=== PATIENT | female | born 1960 ===

== ENCOUNTER 2017-12-31 07:57 | Emergency (ER) | payer OTHER ==
[2017-12-31 08:05] VITALS: BMI 34.3
[2017-12-31 08:10] VITALS: RESP 18
--- NOTE | 2017-12-31 08:17 | C.PDOC ---
Time Seen by Provider: 12/31/17 08:16 Chief Complaint (Nursing): Abdominal Pain Past Medical History Vital Signs: Last Vital Signs Temp 99.2 F 12/31/17 08:06 Pulse 70 12/31/17 08:06 Resp 18 12/31/17 08:06 BP 139/83 12/31/17 08:06 Pulse Ox 99 12/31/17 08:06 - Medical History PMH: Gastritis - Social History Hx Alcohol Use: No Hx Substance Use: No ED Course And Treatment O2 Sat by Pulse Oximetry: 99 Disposition - Disposition
[2017-12-31] MEDS ORDERED: Alum-Mag Hydrox-Simethicone Susp (30 mL) PO STA (08:58)
--- NOTE | 2017-12-31 08:59 | C.PDOC ---
History Of Present Illness 57 yr old F c/o greenish non bloody diarrhea x 3 since last night, abdominal distension, gas and discomfort. Pt denies fever, vomiting. +nausea. No sick contacts, no recent travel. Pt has dysuria 2 wks ago but no dysuria recently. Time Seen by Provider: 12/31/17 08:16 Chief Complaint (Nursing): Abdominal Pain History Per: Patient History/Exam Limitations: no limitations Onset/Duration Of Symptoms: Days (1) Current Symptoms Are (Timing): Still Present Severity: Mild Location Of Pain/Discomfort: Diffuse Radiation Of Pain To:: None Past Medical History Reviewed: Historical Data, Nursing Documentation, Vital Signs Vital Signs: Last Vital Signs Temp 98.2 F 12/31/17 10:22 Pulse 61 12/31/17 10:22 Resp 18 12/31/17 10:22 BP 128/81 12/31/17 10:22 Pulse Ox 99 12/31/17 10:33 - Medical History PMH: Gastritis Family History: States: No Known Family Hx - Social History Hx Alcohol Use: No Hx Substance Use: No Review Of Systems Constitutional: Negative for: Fever, Chills Cardiovascular: Negative for: Chest Pain, Palpitations Respiratory: Negative for: Cough, Shortness of Breath Gastrointestinal: Positive for: Nausea, Abdominal Pain, Diarrhea. Negative for : Vomiting Genitourinary: Negative for: Dysuria, Frequency Physical Exam - Physical Exam Appears: Well, Non-toxic, No Acute Distress Skin: Normal Color, Warm, Dry Head: Atraumatic, Normacephalic Eye(s): bilateral: Normal Inspection, PERRL, EOMI Neck: Normal, Normal ROM Lymphatic: Normal Exam Chest: Symmetrical Cardiovascular: Rhythm Regular Respiratory: Normal Breath Sounds Gastrointestinal/Abdominal: Bowel Sounds, Soft, No Tenderness, Distention Back: Normal Inspection Extremity: Normal ROM, Tenderness Neurological/Psych: Oriented x3, Normal Speech, Normal Motor, Normal Sensation ED Course And Treatment - Laboratory Results Result Diagrams: 12/31/17 09:18 12/31/17 09:18 Lab Interpretation: No Acute Changes O2 Sat by Pulse Oximetry: 99 Pulse Ox Interpretation: Normal Reassessment Condition: Improved (pt reports resolution of pain, no diarrhea in ED.) Disposition Counseled Patient/Family Regarding: Studies Performed, Diagnosis, Need For Followup - Disposition Referrals: Sai Thompson MD [Non-Staff] - Disposition: HOME/ ROUTINE Disposition Time: 10:26 Condition: STABLE Additional Instructions: FOLLOW UP WITH YOUR PMD FOR RE-EVALUATION ON TUESDAY. AVOID DAIRY OR GREASY PRODUCTS. DRINK PLENTY OF WATER AND GATORADE. IF SYMPTOMS GET WORSE OR ANY NEW CONCERNING SYMPTOMS DEVELOP RETURN TO ED. Prescriptions: Dicyclomine [Dicyclomine HCl] 10 mg PO TID PRN #21 cap PRN Reason: Pain, Moderate (4-7) Loperamide HCl/Simethicone [Imodium Multi-Symptom Rel Cplt] 2 each PO BID PRN # 8 tablet PRN Reason: Diarrhea Ondansetron ODT [Zofran ODT] 4 mg PO TID PRN #10 odt PRN Reason: Nausea/Vomiting Instructions: Gastroenteritis (DC) Forms: [facility] [facility] (Latvian) - Clinical Impression Clinical Impression: Gastroenteritis
[2017-12-31] MEDS ORDERED: Aluminum Hydroxide/Magnesium Hydroxide Susp (30 mL) ONE (09:21)
[2017-12-31 09:38] LABS: BASO % 0.6 % (0.0-2.0); EOS # 0.1 K/uL (0.0-0.7); EOS % 1.7 % (0.0-4.0); HEMOGLOBIN 12.5 g/dL (11.0-16.0); LYMPH # 2.1 K/uL (1.0-4.3); LYMPH % 36.2 % (20.0-40.0); MEAN CELL VOLUME 83.9 fL (81.0-99.0); MEAN CORPUSCULAR HEMOGLOBIN 27.9 pg (27.0-31.0); MEAN CORPUSCULAR HGB CONC 33.3 g/dL (33.0-37.0); MEAN PLATELET VOLUME 7.9 fL (7.2-11.7); MONO # 0.4 K/uL (0.0-0.8); MONO % 6.4 % (0.0-10.0); NEUT # 3.2 K/uL (1.8-7.0); NEUT % 55.1 % (50.0-75.0); RBC 4.49 Mil/uL (3.80-5.20); RED CELL DISTRIBUTION WIDTH 14.3 % (11.5-14.5); WHITE BLOOD COUNT 5.9 K/uL (4.8-10.8)
[2017-12-31 09:54] LABS: ALB/GLOB RATIO 1.2 (1.0-2.1); ALBUMIN 4.1 g/dL (3.5-5.0); ALT/SGPT 27 U/L (9-52); AST/SGOT 26 U/L (14-36); BLOOD UREA NITROGEN 11 mg/dL (7-17); CALCIUM 9.3 mg/dl (8.6-10.4); GFR AFRICAN-AMERICAN > 60; GFR NON-AFRICAN AMERICAN > 60; LIPASE 36 U/L (23-300)
[2017-12-31 10:11] LABS: SQUAMOUS EPITHIAL 1 /hpf (0-5); URINE BILIRUBIN NEGATIVE (NEGATIVE); URINE BLOOD NEGATIVE (NEGATIVE); URINE CLARITY Clear (Clear); URINE COLOR Yellow (YELLOW); URINE GLUCOSE (UA) NORMAL (Normal); URINE LEUKOCYTE ESTERASE NEG Leu/uL (Negative); URINE PROTEIN NEGATIVE (NEGATIVE); URINE UROBILINOGEN NORMAL mg/dL (0.2-1.0)
[2017-12-31 10:23] VITALS: BP 128/81; PULSE 61; TEMP 98.2
[2017-12-31 10:32] VITALS: O2SAT 99
== END 2017-12-31 10:50 | disposition home or self-care (01) ==
LOC: C.ER 07:57
DX: K52.9 Noninfective gastroenteritis and colitis, unspecified (principal)

== ENCOUNTER 2018-02-25 10:58 | Emergency (ER) | payer OTHER ==
[2018-02-25 10:59] VITALS: BMI 34.3
[2018-02-25 11:26] VITALS: RESP 18
--- NOTE | 2018-02-25 12:04 | C.PDOC ---
History Of Present Illness 57 year old female presents to the emergency department with complains of a burning sensation in the palm of her left hand after she touched weed killer spray yesterday. Time Seen by Provider: 02/25/18 11:17 Chief Complaint (Nursing): Medical Clearance History Per: Patient History/Exam Limitations: no limitations Onset/Duration Of Symptoms: Days (1) Current Symptoms Are (Timing): Still Present Past Medical History Reviewed: Historical Data, Nursing Documentation, Vital Signs Vital Signs: Last Vital Signs Temp 98.1 F 02/25/18 12:27 Pulse 71 02/25/18 12:27 Resp 18 02/25/18 12:27 BP 107/71 02/25/18 12:27 Pulse Ox 98 02/25/18 12:27 - Medical History PMH: Gastritis Surgical History: No Surg Hx Family History: States: No Known Family Hx - Social History Hx Alcohol Use: No Hx Substance Use: No Review Of Systems Except As Marked, All Systems Reviewed And Found Negative. Skin: Positive for: Other (burning sensation to left hand palm) Physical Exam - Physical Exam Appears: Non-toxic, No Acute Distress Skin: Warm, Dry, No Rash, No Other (erythema) Head: Atraumatic, Normacephalic Eye(s): bilateral: Normal Inspection Neck: Normal, Supple Cardiovascular: Rhythm Regular, No Murmur Respiratory: No Rales, No Rhonchi, No Wheezing Extremity: Normal ROM (at left hand), No Tenderness (at left hand palm), No Swelling (to left hand palm) Neurological/Psych: Oriented x3, Normal Speech, Normal Cognition ED Course And Treatment O2 Sat by Pulse Oximetry: 100 (RA) Pulse Ox Interpretation: Normal Progress Note: Plan: Benadryl 25mg PO Disposition - Disposition Referrals: Jocelyn Robertson MD [Medical Doctor] - Disposition: HOME/ ROUTINE Disposition Time: 12:10 Condition: STABLE Additional Instructions: Follow up with your PMD within 1-2 days. Return to ED if feel worse. Prescriptions: DiphenhydrAMINE [Benadryl] 25 mg PO .Q4-6 H #30 cap Instructions: Diphenhydramine (Systemic) Forms: [facility] [facility] (Croatian) Print Language: [id number] - Clinical Impression Clinical Impression: Skin irritation - Scribe Statement The provider has reviewed the documentation as recorded by the Scribe (Eber Hernandez) All medical record entries made by the Jamie were at my direction and personally dictated by me. I have reviewed the chart and agree that the record accurately reflects my personal performance of the history, physical exam, medical decision making, and the department course for this patient. I have also personally directed, reviewed, and agree with the discharge instructions and disposition.
[2018-02-25 12:28] VITALS: BP 107/71; PULSE 71; TEMP 98.1
[2018-02-25 14:06] VITALS: O2SAT 100
== END 2018-02-25 12:30 | disposition home or self-care (01) ==
LOC: C.ER 10:58
DX: L98.8 Other specified disorders of the skin and subcutaneous tissue (principal)